=== PATIENT | female | born 1990 | race Caucasian/White ===

== ENCOUNTER 2017-02-16 11:57 | Emergency (ER) | payer OTHER ==
[~2017-02-16] VITALS: Ht 167.6 cm; Wt 90.7 kg
--- NOTE | 2017-02-16 12:21 | ED GI/GU/ABDOMINAL COMPLAINT ---
History of Present Illness General Chief Complaint: Abdominal Pain/Flank Pain Stated Complaint: ABD PAIN Source: patient, family, old records Exam Limitations: no limitations Vital Signs & Intake/Output Vital Signs & Intake/Output Vital Signs Date Time Temp Pulse Resp B/P B/P Pulse O2 O2 Flow FiO2 Mean Ox Delivery Rate 02/16 1200 98.4 77 16 103/66 97 Room Air Triage Note: PT WITH BILAT LOWER ABD PAIN THAT STARTED ABOUT 40 MINUTES AGO. PT WAS TALKING AT THE TABLE WHEN PAIN BEGAN. PER MOTHER PT WAS VOMITING AND SHAKING THEN BECAME UNRESPONSIVE FOR LESS THAN ONE MINUTE. Triage Nurses Notes Reviewed? yes HPI: Ms Mendoza is a 26-year-old female with past medical history of migraines who presented to the emergency department this morning after experiencing intense lower left quadrant abdominal pain coupled with nausea,vomiting and an episode of being unresponsive. Patient states that she was in her normal state of health until early this morning when she experienced an intense 10 out of 10 abdominal pain. Pain was described as sharp located in the left lower quadrant. Patient then had 2 episodes of vomiting which she describes as clear and containing bile. Mom, Aster, was present during this episode noted that the patient did have an unresponsive episode which may have lasted between 30 seconds to 1 minute. During this period, the patient did not have any head trauma and her pulse was present. Subsequently the patient was brought to the emergency department by her family for additional workup. At the time of the clinical encounter the patient does endorse that her pain has improved and is currently rated at a 3 out of 10 in severity. Described as a patient pressure like pain. Multiple prominent in the left lower quadrant. Patient states that she's is not currently sexually active. Her last menstrual period was approximately 25 days ago. She does state that she has regular menses. Patient lives at home with family. Patient's primary care physician is Dr. valadez. (DAVID CENTENO,[facility]) Allergies Coded Allergies: NO KNOWN ALLERGIES (02/16/17) Reconcile Medications Oxycodone HCl/Acetaminophen (Percocet 5-325 MG Tablet) 5 MG-325 MG TABLET 1-2 TAB PO Q6P PRN PAIN ? N Is pt currently ? No (KRYSTINA CENTENO,MELBA Ferrera) Past History Travel History Traveled to [place] past 21 day No Medical History Any Pertinent Medical History? none Neurological: migraine Surgical History Surgical History: none Psychosocial History What is your primary language Slovak Tobacco Use: Never used ETOH Use: occasional use Illicit Drug Use: denies illicit drug use Family History Hx Contributory? No (DAVID CENTENO,ASHKAN) Review of Systems Review of Systems Constitutional: Reports: see HPI, chills, fever, malaise, weakness. Denies: diaphoresis. Respiratory: Denies: cough, hemoptysis, orthopnea, short of breath, sputum production. Cardiovascular: Denies: chest pain, edema, orthopena, palpitations. GI: Reports: abdominal pain, nausea, vomiting. Denies: bloating, constipation, diarrhea, distention, bloody stool, changes in stool. Genitourinary: Denies: discharge, dysuria, frequency, hematuria, hesitation. Musculoskeletal: Denies: back pain, gout, joint pain, joint swelling, muscle pain. Skin: Denies: change in skin color, change in hair/nails, dryness, erythema, jaundice. (DAVID CENTENO,ASHKAN) Review of Systems Immunologic/Allergic: Reports: see HPI. (KRYSTINA CENTENO,MELBA Ferrera) Physical Exam Physical Exam General Appearance: well developed/nourished, no apparent distress Head: atraumatic Eyes: Bilateral: PERRL, EOMI, normal inspection. Ears, Nose, Throat, Mouth: hearing grossly normal Respiratory: normal breath sounds, chest non-tender, no respiratory distress Cardiovascular: regular rate/rhythm Peripheral Pulses: 4+ dorsalis pedis (R), 4+ dorsalis pedis (L) Gastrointestinal: normal bowel sounds, soft, Left Lower [place] on deep palpation. No rebound tenderness on RLQ. Pena -. Rectal: deferred Back: normal inspection, normal range of motion, No CVA Tenderness (DAVID CENTENO,[facility]) Physical Exam Neurologic/Psych: no motor/sensory deficits, awake, alert, oriented x 3, normal mood/affect Core Measures ACS in differential dx? No Severe Sepsis Present: No Septic Shock Present: No (KRYSTINA CENTENO,MELBA Ferrera) Progress Differential Diagnosis: appendicitis, biliary colic, ectopic , intrauterine , kidney stone Plan of Care: Orders Procedure Date/time Status Add-on Test (ER Only) 02/16 1255 Active C-REACTIVE PROTEIN 02/16 1211 Complete LACTIC ACID 02/16 1207 Complete COMPREHENSIVE METABOLIC PANEL 02/16 1207 Complete CBC WITHOUT DIFFERENTIAL 02/16 1207 Complete URINE 02/16 1204 Complete URINALYSIS 02/16 1204 Complete Current Medications Sig/Elaine Start time Last Medication Dose Stop Time Status Admin Sodium Chloride 1,000 ML BOLUS ONE 02/16 1300 AC 02/16 (Normal Saline 0.9%) 02/16 1459 1317 Laboratory Tests 02/16/17 1310: Urine Color YEL, Urine Clarity CLDY H, Urine pH 6.5, Ur Specific [place] 1.025, Urine Protein 100 H, Urine Ketones NEG, Urine Nitrite NEG, Urine Bilirubin NEG, Urine Urobilinogen 0.2, Ur Leukocyte Esterase NEG, Ur Microscopic SEDIMENT EXAMINED, Urine RBC >75 H, Urine WBC 5-10 H, Ur Epithelial Cells MOD H, Urine Bacteria FEW H, Urine Hemoglobin LARGE H, Urine Glucose NEG, Urine Test NEGATIVE 02/16/17 1224: C-React Prot High Sens Cancelled, CBC w Diff Cancelled, WBC Cancelled, RBC Cancelled, Hgb Cancelled, Hct Cancelled, MCV Cancelled, MCH Cancelled, RDW Cancelled, Plt Count Cancelled, MPV Cancelled, PUBS MCHC Cancelled, Urine Test Cancelled 02/16/17 1211: Anion Gap 10, Estimated GFR > 60, BUN/Creatinine Ratio 22.9, Glucose 114 H, Lactic Acid 1.8, Calcium 9.0, Total Bilirubin 0.6, AST 15, ALT 28, Alkaline Phosphatase 59, C-Reactive Prot, Quant < 0.5, Total Protein 6.7, Albumin 4.0, Globulin 2.7, Albumin/Globulin Ratio 1.5, CBC w Diff NO MAN DIFF REQ, RBC 4.78, MCV 88.2, MCH 29.5, RDW 13.0, MPV 9.1, Gran % 57.2, Lymphocytes % 36.1, Monocytes % 4.6, Eosinophils % 1.4, Basophils % 0.7, Absolute Granulocytes 3.9, Absolute Lymphocytes 2.4, Absolute Monocytes 0.3, Absolute Eosinophils 0.1, Absolute Basophils 0, PUBS MCHC 33.4 Initial ED EKG: none (DAVID CENTENO,[facility]) Diagnostic Imaging: Viewed by Me: CT Scan. Discussed w/RAD: CT Scan. Radiology Impression: PATIENT: MAXX MENDOZA PRESENT AGE: 26 PATIENT ACCOUNT NO: [id number] : 92 LOCATION: [facility] ORDERING PHYSICIAN: ASHKAN HERNANDEZ MD SERVICE DATE: 02/16/17 EXAM TYPE: CAT - CT ABD & PELVIS W/O IV CONTRAS EXAMINATION: CT ABDOMEN AND PELVIS WITHOUT CONTRAST CLINICAL INFORMATION: 26-year-old female with abdominal pain and left lower quadrant tenderness. Evaluate for nephrolithiasis, colitis and/or ovarian torsion. COMPARISON: None TECHNIQUE: Multidetector volumetric imaging was performed from the superior aspect of the liver through the pubic symphysis. Sagittal and coronal reformatted images were obtained on the technologist's workstation. DLP: 493 mGy-cm FINDINGS: LUNG BASES: Unremarkable. LIVER, GALLBLADDER, AND BILIARY TREE: Unremarkable. PANCREAS: Unremarkable. SPLEEN: Unremarkable. ADRENAL GLANDS: Unremarkable. KIDNEYS AND URETERS: The kidneys are normal in size, shape, and attenuation. No hydronephrosis, hydroureter, or calculi seen. No perinephric stranding. BLADDER: Unremarkable. GASTROINTESTINAL TRACT: Stomach is normal. Loops of bowel are normal in size. Appendix is normal. No pericolonic fat stranding. No evidence of acute inflammation or obstruction along the gastrointestinal tract. No ascites or pneumoperitoneum. ABDOMINAL WALL : Unremarkable. LYMPH NODES: No pathologic sized lymph nodes within the abdomen or pelvis. VASCULAR: Abdominal aorta is normal in caliber. No retroperitoneal hematoma. PELVIC VISCERA: The anteflexed uterus has normal size and contour. The ovaries are unremarkable for noncontrast examination. No evidence of adnexal mass or pelvic free fluid. OSSEOUS STRUCTURES: Nonaggressive 0.8 x 1.1 cm geographic lucency with sclerotic border of the right iliac bone appears to contain a small amount of internal fat, compatible with a benign bone lesion. Small bone islands are present within the left femoral head and right pubic bone. There are no suspicious osseous lesions. IMPRESSION: No acute imaging findings in the abdomen or pelvis. No specific source of pain is identified. On this noncontrast imaging test, there is no evidence of urolithiasis, colitis or gynecologic disease. DICTATED BY: MANAS COSTA MD DATE/TIME DICTATED:02/16/171334 INDUSTRIAL SAFETY AND HEALTH TECHNICIAN:ANTONY DATE/TIME TRANSCRIBED:02/16/171334 CONFIDENTIAL, DO NOT COPY WITHOUT APPROPRIATE AUTHORIZATION. <Electronically signed in Other Vendor System> SIGNED BY: MANAS COSTA MD 02/16/17 8645 (KRYSTINA CENTENO,MELBA Ferrera) Departure Departure Condition: Stable Departure Forms: Customer Survey General Discharge Information (DAVID CENTENO,ASHKAN) Departure Disposition: HOME OR SELF CARE Clinical Impression Primary Impression: Kidney stone Referrals: EKATERINA CENTENO,MAURA CHUNG MD,MIHAELA (PCP/Family) Additional Instructions: Drink plenty of fluids. Avoid diet sodas. Take pain medication as needed. Return if symptoms worsen or for any concerns. Prescriptions: Current Visit Scripts Oxycodone HCl/Acetaminophen (Percocet 5-325 MG Tablet) 1-2 TAB PO Q6P PRN PAIN #20 TAB Resident Co-Sign Statement Statement: ED Attending supervision documentation- [x] I saw and evaluated the patient. I have also reviewed all the pertinent lab results and diagnostic results. I agree with the findings and the plan of care as documented in the Resident's documentation. [x] I have reviewed the ED Record and agree with the Resident's documentation. [] Additions or exceptions (if any) to the Resident's note and plan are summarized below: [Hypersensitivity seen and examined this patient. I have read the above note and agree with what has been written. Patient had sudden onset of left lower quadrant stabbing pain. There is no radiation. The pain causes her to pass out. Patient was sitting at a table at time. Patient did not fall to the ground. The pain has slowly decreased to the point that is now 3 out of 10. There is no radiation. There are no aggravating or mitigating factors. Patient is not currently menstruation. Patient has hematuria and her signs and symptoms are consistent with kidney stones. Patient feels comfortable going home. Questions have been answered.] (KRYSTINA CENTENO,MELBA Ferrera)
[2017-02-16 12:23] LABS: ABSOLUTE BASOPHIL COUNT 0 /CUMM (0.0-0.2); ABSOLUTE EOSINOPHIL COUNT 0.1 /CUMM (0.0-0.7); ABSOLUTE GRANULOCYTE CT 3.9 /CUMM (1.4-6.5); ABSOLUTE LYMPH COUNT 2.4 /CUMM (1.2-3.4); ABSOLUTE MONOCYTE COUNT 0.3 /CUMM (0.10-0.60); BASOPHIL % 0.7 % (0.0-2.0); EOSINOPHIL % 1.4 % (0-5); GRANULOCYTE % 57.2 % (42.2-75.2); HEMATOCRIT 42.2 % (37-47); MEAN CORPUSCULAR HGB 29.5 PG (27.0-31.0); MEAN CORPUSCULAR HGB CONC 33.4 G/DL (33.0-37.0); MEAN CORPUSCULAR VOLUME 88.2 FL (81.0-99.0); MEAN PLATELET VOLUME 9.1 FL (7.4-10.4); PLATELET COUNT 200 /CUMM (130-400); RED BLOOD CELL CT 4.78 /CUMM (4.20-5.40); WHITE BLOOD CELL COUNT 6.8 /CUMM (4.8-10.8)
--- NOTE | 2017-02-16 13:46 | CT SCAN REPORT ---
EXAMINATION: CT ABDOMEN AND PELVIS WITHOUT CONTRAST CLINICAL INFORMATION: 26-year-old female with abdominal pain and left lower quadrant tenderness. Evaluate for nephrolithiasis, colitis and/or ovarian torsion. COMPARISON: None TECHNIQUE: Multidetector volumetric imaging was performed from the superior aspect of the liver through the pubic symphysis. Sagittal and coronal reformatted images were obtained on the technologist's workstation. DLP: 493 mGy-cm FINDINGS: LUNG BASES: Unremarkable. LIVER, GALLBLADDER, AND BILIARY TREE: Unremarkable. PANCREAS: Unremarkable. SPLEEN: Unremarkable. ADRENAL GLANDS: Unremarkable. KIDNEYS AND URETERS: The kidneys are normal in size, shape, and attenuation. No hydronephrosis, hydroureter, or calculi seen. No perinephric stranding. BLADDER: Unremarkable. GASTROINTESTINAL TRACT: Stomach is normal. Loops of bowel are normal in size. Appendix is normal. No pericolonic fat stranding. No evidence of acute inflammation or obstruction along the gastrointestinal tract. No ascites or pneumoperitoneum. ABDOMINAL WALL: Unremarkable. LYMPH NODES: No pathologic sized lymph nodes within the abdomen or pelvis. VASCULAR: Abdominal aorta is normal in caliber. No retroperitoneal hematoma. PELVIC VISCERA: The anteflexed uterus has normal size and contour. The ovaries are unremarkable for noncontrast examination. No evidence of adnexal mass or pelvic free fluid. OSSEOUS STRUCTURES: Nonaggressive 0.8 x 1.1 cm geographic lucency with sclerotic border of the right iliac bone appears to contain a small amount of internal fat, compatible with a benign bone lesion. Small bone islands are present within the left femoral head and right pubic bone. There are no suspicious osseous lesions. IMPRESSION: No acute imaging findings in the abdomen or pelvis. No specific source of pain is identified. On this noncontrast imaging test, there is no evidence of urolithiasis, colitis or gynecologic disease.
[2017-02-16] MEDS ORDERED: PERCOCET 5-3251 EACH PO (13:59)
[2017-02-16 14:12] VITALS: BP 115/59
== END 2017-02-16 14:14 ==
LOC: ERH 11:57
PROVIDERS: Emergency Medicine
DX: N20.0 Calculus of kidney (principal)
CPT/HCPCS: 74176; 81001; 81025